=== PATIENT | female | born 1935 | race Caucasian/White ===

== ENCOUNTER 2018-07-15 05:49 | Inpatient (IN) | payer MEDICARE ==
[2018-07-08 09:26] VITALS: BMI 22.0
[2018-07-15 06:35] LABS: #Eosinphils 0.2 thou/uL (0.0-0.7); #Lymphocytes 1.9 thou/uL (1.20-3.40); #Monocytes 0.6 thou/uL (0.11-0.59); #Neutrophils 3.7 thou/uL (1.40-6.50); %Basophils 0.6 % (0.0-1.0); %Eosinophils 2.4 % (0.0-10.0); %Lymphocytes 29.1 % (21.0-51.0); %Monocytes 9.9 % (0.0-10.0); Hemoglobin 9.5 g/dL (12.0-16.0); Mean Corpuscular HGB CONC 32.4 g/dL (32.0-36.0); Mean Corpuscular Hemoglobin 27.8 pg (27.0-31.0); Mean Corpuscular Volume 85.9 fL (78.0-98.0); Mean Platelet Volume 8.2 fL (7.4-10.4); Platelet Count 235 thou/uL (130-400); RBC Distribution Width 21.1 % (11.5-14.5); Red Blood Cell (RBC) Count 3.42 mill/uL (4.20-5.40); White Blood Cell (WBC) Count 6.4 thou/uL (4.8-10.8)
[2018-07-15 06:40] LABS: PTT 28.9 SEC (22.9-36.1); Prothrombin Time 13.2 SEC (12.0-14.7)
[2018-07-15 06:58] LABS: Anion Gap 15 mmol/L (10-20); BUN (Urea Nitrogen) 32 mg/dL (9.8-20.1); Calc. Creatinine Clearance 34 mL/min (70-130); Calcium 10.1 mg/dL (7.8-10.44); Carbon Dioxide 26 mmol/L (23-31); Chloride 105 mmol/L (98-107); Estimated GFR-MDRD 35; Glucose 84 mg/dL (83-110); Potassium 4.3 mmol/L (3.5-5.1); Sodium 142 mmol/L (136-145)
[2018-07-15] MEDS ORDERED: Iopamidol 370 76% 100 ML VIAL ONE (10:20)
[2018-07-15] MEDS ORDERED: Midazolam HCl 2 mg/2 ml Vial ONE (12:55)
[2018-07-15] MEDS ORDERED: Fentanyl 100 MCG/2 ML VIAL ONE (12:55)
--- NOTE | 2018-07-15 16:19 | CT ---
BRAIN CT WITHOUT IV CONTRAST: 07/15/18 HISTORY: Slurred speech following heart catheterization. FINDINGS: There is some bilateral atrophy and chronic white matter ischemic change. There is no focal mass or m idline shift. No intra or extra-axial hemorrhage. Small medial left basal ganglia lacunar infarct. Se veral very small nonspecific low attenuation foci within the brainstem, possibly areas of old lacunar infarct. IMPRESSION: Atrophy and chronic white matter ischemic changes. Several small scattered areas of probable lacunar infarct change. If there is clinical concern for acute infarct, followup MRI is recommended. POS: OFF
[2018-07-15] MEDS ORDERED: Aspirin Chewable 81 MG TAB ONE (16:55)
--- NOTE | 2018-07-15 18:11 | MRI ---
MRI OF BRAIN WITH AND WITHOUT IV CONTRAST: 07/15/18 HISTORY: Status post heart cath with slurred speech. FINDINGS: Correlation is made with the earlier CT scan of 4:09 p.m. from same date. 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 No restricted diffusion is noted. No evidence of infarct, acute hemorrhage , mass, midline shift or abnormal extra-axial fluid collections noted. No abnormal postcontrast enhan cement is seen. There is small focus of hemosiderin deposition in the right parietal lobe which may b e due to old hemorrhage. The ventricular size is appropriate and the basilar cisterns patent. No abno rmal postcontrast enhancement is seen. Findings of decreased signal on gradient echo sequences in the basal ganglia correspond to calcifications noted on the CT scan. IMPRESSION: No evidence of acute intracranial process. Discussed over the telephone with ER physician, Dr. Clyde Paige at 5:54 p.m. POS: [facility]
[2018-07-15] MEDS ORDERED: PROVENTIL INHALER 6.7 G (200 INHALATIONS) INH PRN (22:15)
[2018-07-15] MEDS ORDERED: Ipratropium Bromide 2.5 ml Neb NEB PRN (22:18)
[2018-07-15] MEDS: Sodium Chloride 0.9% 1,000 ML IV SCH (22:24)
[2018-07-16] MEDS: Sodium Chloride 0.9% 1,000 ML IV SCH (02:58)
[2018-07-16] MEDS ORDERED: Levothyroxine Sodium 88 MCG TAB PO SCH (06:00)
[2018-07-16 07:44] VITALS: TEMP 97.8
[2018-07-16] MEDS ORDERED: Potassium Chloride 20 MEQ TAB PO SCH (08:00)
[2018-07-16 08:32] VITALS: BP 125/68
[2018-07-16] MEDS ORDERED: Estradiol 1 MG TAB PO SCH (09:00)
[2018-07-16] MEDS ORDERED: Lisinopril 20 MG TAB PO SCH (09:00)
[2018-07-16] MEDS ORDERED: Folic Acid 1 MG TAB PO SCH (09:00)
[2018-07-16] MEDS ORDERED: Meloxicam 15 MG TAB PO SCH (09:00)
[2018-07-16] MEDS ORDERED: Furosemide 40 MG TAB PO SCH (09:00)
[2018-07-16] MEDS ORDERED: GINKGO BILOBA PO SCH (09:00)
[2018-07-16] MEDS ORDERED: Fenofibrate Nanocrystallized 145 MG TAB PO SCH (09:00)
[2018-07-16] MEDS ORDERED: Rosuvastatin 20 MG TAB PO SCH (09:00)
[2018-07-16] MEDS ORDERED: Clopidogrel Bisulfate 75 MG TAB PO SCH (09:00)
[2018-07-16] MEDS ORDERED: Metoprolol Tartrate 25 MG TAB PO SCH (09:00)
--- NOTE | 2018-07-16 09:35 | DIS ---
DATE OF ADMISSION: 07/15/2018 DATE OF DISCHARGE: 07/16/2018 DISCHARGE DIAGNOSIS: Transient ischemic attack. HOSPITAL COURSE: Ms. Quiroga is a very pleasant 82-year-old woman with history of shortness of breath and zgrvybxd-bz-[id number] aortic stenosis. She underwent coronary angiography and was found to have one-vessel disease. She also was found to have severe aortic stenosis with calculated aortic valve area of 0.6. After 2 hours after the procedure, she developed intermittent slurred speech. No other focal neurologic deficits present. CT scan and MRI were negative for stroke. She was then admitted for observation. She did well and her symptoms completely resolved upon transfer from PCU to the Stroke Unit. No other complication present. DISCHARGE MEDICATIONS: 1. Lisinopril 40 daily. 2. Atrovent as prescribed. 3. Folvite. 4. Crestor 20 mg daily. 5. Lopressor 25 b.i.d. 6. Mobic as prescribed. 7. Tirosint as prescribed. 8. Ventolin. 9. Fenofibrate. 10. Estrace. 11. Plavix 75 q.a.m. 12. Aspirin 81 q.a.m. 13. Crestor 20 daily. 14. Potassium chloride 10 mEq daily. 15. Metoprolol 25 b.i.d. CONDITION AT DISCHARGE: Stable. Job ID: [id number]
[2018-07-16] MEDS ORDERED: Aspirin 81 mg Enteric Coated Tablet PO SCH (21:00)
== END 2018-07-16 11:58 | disposition home or self-care (01) | DRG 69 ==
LOC: CCL 05:49 → 2SE 17:54
PROVIDERS: ADMIT Internal Medicine Cardiovascular Disease; ATTEND Internal Medicine Cardiovascular Disease
PROC: 4A023N7 Measurement of Cardiac Sampling and Pressure, Left Heart, Percutaneous Approach (ICD-10-PCS; principal; 2018-07-15)
PROC: B2111ZZ Fluoroscopy of Multiple Coronary Arteries using Low Osmolar Contrast (ICD-10-PCS; 2018-07-15)
PROC: B2151ZZ Fluoroscopy of Left Heart using Low Osmolar Contrast (ICD-10-PCS; 2018-07-15)
DX: G45.9 Transient cerebral ischemic attack, unspecified (principal); I35.0 Nonrheumatic aortic (valve) stenosis; I10 Essential (primary) hypertension
CPT/HCPCS: 70450; 70553; 76942; 80048; 85025; 85610; 85730; 93460; 99152; 99153; C1769; J1644; J2250; J3010; Q9967

== ENCOUNTER 2018-09-20 07:22 | Day surgery (SDC) | payer MEDICARE ==
[2018-09-17 13:04] VITALS: BMI 22.4
[2018-09-20] MEDS ORDERED: Nitroglycerin 100MG/250ML BOT 250 ML ONE (09:18)
[2018-09-20] MEDS ORDERED: Verapamil 5 MG/2 ML VIAL ONE (09:18)
[2018-09-20] MEDS ORDERED: Heparin 10,000 UNITS/1 ML VIAL ONE (09:18)
[2018-09-20] MEDS ORDERED: Lidocaine 1% (PF) 30 ML VIAL ONE (09:18)
[2018-09-20] MEDS ORDERED: Midazolam HCl 2 mg/2 ml Vial ONE (09:49)
[2018-09-20] MEDS ORDERED: Fentanyl 100 MCG/2 ML VIAL ONE (09:49)
[2018-09-20] MEDS ORDERED: Clopidogrel Bisulfate 300 MG TAB ONE (09:54)
[2018-09-20] MEDS ORDERED: Iopamidol 370 76% 50 ML VIAL FS ONE (12:18)
[2018-09-20] MEDS ORDERED: Iopamidol 370 76% 100 ML VIAL ONE (12:18)
== END 2018-09-20 16:30 | disposition home or self-care (01) ==
LOC: CCL 07:22
PROVIDERS: ATTEND Internal Medicine Cardiovascular Disease
PROC: 4A023N6 Measurement of Cardiac Sampling and Pressure, Right Heart, Percutaneous Approach (ICD-10-PCS; principal; 2018-09-20)
PROC: B2101ZZ Fluoroscopy of Single Coronary Artery using Low Osmolar Contrast (ICD-10-PCS; 2018-09-20)
DX: I25.10 Atherosclerotic heart disease of native coronary artery without angina pectoris (principal); I35.0 Nonrheumatic aortic (valve) stenosis; I11.0 Hypertensive heart disease with heart failure; I50.9 Heart failure, unspecified; E03.9 Hypothyroidism, unspecified; I25.2 Old myocardial infarction; F32.9 Major depressive disorder, single episode, unspecified; Z95.5 Presence of coronary angioplasty implant and graft; Z87.891 Personal history of nicotine dependence; Z88.0 Allergy status to penicillin; Z91.048 Other nonmedicinal substance allergy status
CPT/HCPCS: 85347; 92928; 93005; 93454; 99152; 99153; C1725; C1769; C1874; C1887; C9600; J1644; J2001; J2250; J3010; Q9967

== ENCOUNTER 2019-12-22 10:06 | Outpatient (CLI) | payer MEDICARE ==
--- NOTE | 2019-12-22 11:17 | MMO ---
Bilateral MAMMO Bilat Screen [facility]. CLINICAL HISTORY: Patient is 84 years old and is seen for screening. The patient has the following family history of breast cancer: mother and maternal grandmother. The patient has a history of left Lumpectomy - benign - UNKNOWN YEAR. VIEWS: The views performed were: bilateral craniocaudal with tomosynthesis and bilateral mediolateral oblique with tomosynthesis. FILMS COMPARED: No prior imaging studies are available for comparison. This study has been interpreted with the assistance of computer-aided detection. MAMMOGRAM FINDINGS: There are scattered fibroglandular densities. There are benign appearing calcifications seen in both breasts. There are also vascular calcifications. There are no suspicious masses, suspicious calcifications, or suspicious areas of architectural distortion. IMPRESSION: THERE IS NO MAMMOGRAPHIC EVIDENCE OF MALIGNANCY. A ROUTINE FOLLOW-UP MAMMOGRAM IN 1 YEAR IS RECOMMENDED. THE RESULTS OF THIS EXAM WERE SENT TO THE PATIENT. ACR BI-RADS Category 2 - Benign finding MAMMOGRAPHY NOTE: 1. A negative mammogram report should not delay a biopsy if a dominant of clinically suspicious mass is present. 2. Approximately 10% to 15% of breast cancers are not detected by mammography. 3. Adenosis and dense breasts may obscure an underlying neoplasm. Reported by: ELDA ARGUETA MD Electonically Signed: [id number]
== END 2019-12-22 10:07 | disposition home or self-care (01) ==
LOC: BICMAMMO 10:06
PROVIDERS: ATTEND Internal Medicine
DX: Z12.31 Encounter for screening mammogram for malignant neoplasm of breast (principal); Z91.89 Other specified personal risk factors, not elsewhere classified; Z80.3 Family history of malignant neoplasm of breast
CPT/HCPCS: 77063; 77067

== ENCOUNTER 2020-12-31 13:17 | Outpatient (CLI) | payer MEDICARE | END 2020-12-31 13:18 | disposition home or self-care (01) | LOC: BICMAMMO 13:17 | PROVIDERS: ATTEND Internal Medicine | DX: Z12.31 Encounter for screening mammogram for malignant neoplasm of breast (principal); Z80.3 Family history of malignant neoplasm of breast; Z98.890 Other specified postprocedural states | CPT/HCPCS: 77063; 77067 ==

== ENCOUNTER 2021-09-03 11:41 | Inpatient (IN) | payer MEDICARE ==
[2021-09-03 13:17] LABS: PTT 28.6 sec (22.9-36.1); Prothrombin Time 12.8 sec (12.0-14.7)
[2021-09-03 13:44] LABS: #Eosinphils 0.1 thou/uL (0.0-0.7); #Lymphocytes 1.8 thou/uL (1.20-3.40); #Monocytes 0.4 thou/uL (0.11-0.59); #Neutrophils 3.2 thou/uL (1.40-6.50); %Basophils 0.5 % (0.0-1.0); %Eosinophils 2.1 % (0.0-10.0); %Lymphocytes 32.5 % (21.0-51.0); %Monocytes 7.8 % (0.0-10.0); Hemoglobin 11.6 g/dL (12.0-16.0); Mean Corpuscular HGB CONC 33.8 g/dL (32.0-36.0); Mean Corpuscular Hemoglobin 31.7 pg (27.0-31.0); Mean Corpuscular Volume 93.9 fL (78.0-98.0); Mean Platelet Volume 6.5 fL (7.4-10.4); Platelet Count 193 thou/uL (130-400); RBC Distribution Width 13.7 % (11.5-14.5); Red Blood Cell (RBC) Count 3.67 mill/uL (4.20-5.40); White Blood Cell (WBC) Count 5.6 thou/uL (4.8-10.8)
[2021-09-03 13:51] LABS: CKMB 2.2 ng/mL (0-6.6)
[2021-09-03 13:58] LABS: ALT (SGPT) 16 U/L (8-55); AST (SGOT) 29 U/L (5-34); Albumin 4.4 g/dL (3.4-4.8); Alkaline Phosphatase 61 U/L (40-110); Anion Gap 16 mmol/L (10-20); BUN (Urea Nitrogen) 50 mg/dL (9.8-20.1); Bilirubin, Total 0.6 mg/dL (0.2-1.2); Calc. Creatinine Clearance 0 mL/min (70-130); Calcium 10.3 mg/dL (7.8-10.44); Carbon Dioxide 27 mmol/L (23-31); Chloride 103 mmol/L (98-107); Globulin 3.3 g/dL (2.4-3.5); Glucose 88 mg/dL (83-110); Potassium 4.8 mmol/L (3.5-5.1); Protein, Total 7.7 g/dL (5.8-8.1); Sodium 141 mmol/L (136-145)
[2021-09-03] MEDS ORDERED: Aspirin Chewable 81 MG TAB ONE (15:44)
[2021-09-03 16:56] LABS: Troponin I 0.156 ng/mL (< 0.028)
[2021-09-03 17:26] LABS: Bacteria/HPF None Seen HPF (None Seen); Bilirubin Negative (Negative); Blood, Urine Negative (Negative); Clarity Turbid (Clear); Glucose, Urine (Dipstick) 70 mg/dL (Negative); Ketone, Urine Negative (Negative); Leukocyte 75 Leu/uL (Negative); Nitrite Negative (Negative); Protein, Urine (Dipstick) Negative (Neg-Trace); RBC/HPF None Seen HPF (0-3); Squamous Epithelial 0-3 HPF (0-3); Urobilinogen Normal mg/dL (Less than 2); WBC/HPF 0-3 HPF (0-3)
[2021-09-03] MEDS ORDERED: Ondansetron ODT 4 MG TAB SL PRN (18:45)
[2021-09-03] MEDS ORDERED: Ondansetron PF 4 MG/2 ML Vial IVP PRN (18:45)
[2021-09-03] MEDS ORDERED: Acetaminophen 325 MG TAB PO PRN (18:45)
[2021-09-03 22:47] LABS: Troponin I 0.165 ng/mL (< 0.028)
[2021-09-04 00:59] VITALS: BMI 19.3
[2021-09-04 05:02] LABS: #Eosinphils 0.2 thou/uL (0.0-0.7); #Lymphocytes 1.9 thou/uL (1.20-3.40); #Monocytes 0.4 thou/uL (0.11-0.59); #Neutrophils 2.4 thou/uL (1.40-6.50); %Basophils 0.8 % (0.0-1.0); %Eosinophils 3.4 % (0.0-10.0); %Monocytes 8.6 % (0.0-10.0); %Neutrophils 49.2 % (42.0-75.0); Hemoglobin 11.4 g/dL (12.0-16.0); Mean Corpuscular HGB CONC 33.3 g/dL (32.0-36.0); Mean Corpuscular Hemoglobin 32.3 pg (27.0-31.0); Mean Platelet Volume 6.7 fL (7.4-10.4); Platelet Count 165 thou/uL (130-400); RBC Distribution Width 13.4 % (11.5-14.5); Red Blood Cell (RBC) Count 3.54 mill/uL (4.20-5.40); White Blood Cell (WBC) Count 4.9 thou/uL (4.8-10.8)
[2021-09-04 05:32] LABS: Anion Gap 12 mmol/L (10-20); BUN (Urea Nitrogen) 48 mg/dL (9.8-20.1); Calc. Creatinine Clearance 27 mL/min (70-130); Calcium 9.7 mg/dL (7.8-10.44); Carbon Dioxide 29 mmol/L (23-31); Cardiac Risk 4.2 (Less than 4.5); Chloride 104 mmol/L (98-107); Cholesterol 118 mg/dl (< 200 Desired); Glucose 88 mg/dL (83-110); HDL Cholesterol 28 mg/dL (>60 Neg Risk); LDL Cholesterol, Calculated 57 mg/dL; Potassium 3.9 mmol/L (3.5-5.1); Sodium 141 mmol/L (136-145); Triglycerides 166 mg/dL (Less than 150)
[2021-09-04] MEDS: Heparin 5,000 UNITS/ML VIAL SC SCH ×2 (08:41→20:56)
[2021-09-04] MEDS: Aspirin 81 mg Enteric Coated Tablet PO SCH (08:50)
[2021-09-04 13:09] LABS: SARS-CoV-2 PCR by NAA Not Detected (NotDetected)
[2021-09-05 05:10] LABS: #Eosinphils 0.1 thou/uL (0.0-0.7); #Lymphocytes 2.1 thou/uL (1.20-3.40); #Monocytes 0.6 thou/uL (0.11-0.59); #Neutrophils 2.5 thou/uL (1.40-6.50); %Basophils 0.5 % (0.0-1.0); %Eosinophils 2.8 % (0.0-10.0); %Lymphocytes 38.9 % (21.0-51.0); %Monocytes 10.7 % (0.0-10.0); %Neutrophils 47.2 % (42.0-75.0); Hemoglobin 11.3 g/dL (12.0-16.0); Mean Corpuscular HGB CONC 33.5 g/dL (32.0-36.0); Mean Corpuscular Hemoglobin 32.4 pg (27.0-31.0); Mean Corpuscular Volume 96.7 fL (78.0-98.0); Mean Platelet Volume 6.8 fL (7.4-10.4); Platelet Count 158 thou/uL (130-400); RBC Distribution Width 13.3 % (11.5-14.5); Red Blood Cell (RBC) Count 3.48 mill/uL (4.20-5.40); White Blood Cell (WBC) Count 5.3 thou/uL (4.8-10.8)
[2021-09-05] MEDS: Levothyroxine Sodium 100 MCG TAB PO SCH (05:32)
[2021-09-05 05:35] LABS: Anion Gap 12 mmol/L (10-20); BUN (Urea Nitrogen) 40 mg/dL (9.8-20.1); Calc. Creatinine Clearance 29 mL/min (70-130); Calcium 9.6 mg/dL (7.8-10.44); Carbon Dioxide 27 mmol/L (23-31); Chloride 106 mmol/L (98-107); Glucose 88 mg/dL (83-110); Potassium 3.8 mmol/L (3.5-5.1); Sodium 141 mmol/L (136-145)
[2021-09-05] MEDS: Heparin 5,000 UNITS/ML VIAL SC SCH ×2 (08:25→20:50)
[2021-09-05] MEDS: Aspirin 81 mg Enteric Coated Tablet PO SCH (08:27)
[2021-09-05] MEDS: Clopidogrel Bisulfate 75 MG TAB PO SCH (08:27)
[2021-09-05] MEDS: Rosuvastatin 10 MG TAB PO SCH (08:27)
[2021-09-05] MEDS: Lisinopril 20 MG TAB PO SCH (08:28)
[2021-09-05] MEDS ORDERED: PROPOFOL 0 ML ONE ×2 (09:39→09:43)
[2021-09-05] MEDS ORDERED: Metoprolol Tartrate 25 MG TAB PO SCH (21:00)
[2021-09-06] MEDS: Levothyroxine Sodium 100 MCG TAB PO SCH (05:13)
[2021-09-06 05:31] LABS: Anion Gap 12 mmol/L (10-20); BUN (Urea Nitrogen) 35 mg/dL (9.8-20.1); Calc. Creatinine Clearance 31 mL/min (70-130); Calcium 9.4 mg/dL (7.8-10.44); Carbon Dioxide 27 mmol/L (23-31); Chloride 104 mmol/L (98-107); Glucose 90 mg/dL (83-110); Potassium 4.1 mmol/L (3.5-5.1); Sodium 139 mmol/L (136-145)
[2021-09-06] MEDS: Lisinopril 20 MG TAB PO SCH (08:57)
[2021-09-06] MEDS: Aspirin 81 mg Enteric Coated Tablet PO SCH (08:57)
[2021-09-06] MEDS: Clopidogrel Bisulfate 75 MG TAB PO SCH (08:57)
[2021-09-06] MEDS: Heparin 5,000 UNITS/ML VIAL SC SCH (08:57)
[2021-09-06] MEDS: Rosuvastatin 10 MG TAB PO SCH (08:58)
[2021-09-06] MEDS ORDERED: Empagliflozin 10 MG TAB PO SCH (09:00)
[2021-09-06 16:15] VITALS: BP 123/59; TEMP 98.8
== END 2021-09-06 19:01 | disposition home or self-care (01) | DRG 123 ==
LOC: ERS 11:41 → ERHOLD 16:06 → NEURO 18:41 → OBSVTOIN 09-04 13:59
PROVIDERS: ADMIT Family Medicine; ATTEND Family Medicine
PROC: B24BZZ4 Ultrasonography of Heart with Aorta, Transesophageal (ICD-10-PCS; principal; 2021-09-05)
DX: H34.231 Retinal artery branch occlusion, right eye (principal); I42.0 Dilated cardiomyopathy; Z20.822 Contact with and (suspected) exposure to COVID-19; E78.5 Hyperlipidemia, unspecified; I25.10 Atherosclerotic heart disease of native coronary artery without angina pectoris; N18.30 Chronic kidney disease, stage 3 unspecified; I12.9 Hypertensive chronic kidney disease with stage 1 through stage 4 chronic kidney disease, or unspecified chronic kidney disease; E03.9 Hypothyroidism, unspecified; B36.9 Superficial mycosis, unspecified; R00.1 Bradycardia, unspecified; F32.A Depression, unspecified; Z96.641 Presence of right artificial hip joint; R77.8 Other specified abnormalities of plasma proteins; I49.3 Ventricular premature depolarization; I44.7 Left bundle-branch block, unspecified; I48.0 Paroxysmal atrial fibrillation; Z91.040 Latex allergy status; Z88.0 Allergy status to penicillin; Z88.8 Allergy status to other drugs, medicaments and biological substances; Z91.09 Other allergy status, other than to drugs and biological substances; Z79.899 Other long term (current) drug therapy; Z79.02 Long term (current) use of antithrombotics/antiplatelets; Z79.890 Hormone replacement therapy; Z95.3 Presence of xenogenic heart valve; Z95.5 Presence of coronary angioplasty implant and graft; Z90.49 Acquired absence of other specified parts of digestive tract; Z90.89 Acquired absence of other organs; Z90.710 Acquired absence of both cervix and uterus; Z82.49 Family history of ischemic heart disease and other diseases of the circulatory system; Z87.891 Personal history of nicotine dependence
CPT/HCPCS: 36415; 70450; 70551; 80048; 80053; 80061; 81003; 81015; 82553; 84484; 85025; 85610; 85652; 85730; 86140; 93005; 93306; 93312; 93880; J1644; J2704; U0003; U0005